=== PATIENT | female | born 1940 | race Caucasian/White ===

== ENCOUNTER 2016-12-05 11:36 | Day surgery (SDC) | payer OTHER ==
[~2016-12-05 11:36] MED LIST: ACETAMINOPHEN 325 MG TAB PO PRN; ASPIRIN EC 325 MG TAB PO ONE; DIAZEPAM 5 MG TAB PO ONE; FAMOTIDINE 20 MG TAB PO ONE; NITROGLYCERIN 0.4 MG BTL SL PRN; NS 1,000 ML IV SCH; TEMAZEPAM 15 MG CAP PO PRN; diphenhydrAMINE 25 MG CAP PO ONE
[2016-12-05] MEDS ORDERED: FAMOTIDINE 20 MG TAB PO ONE (11:39)
[2016-12-05] MEDS ORDERED: diphenhydrAMINE 25 MG CAP PO ONE (11:39)
[2016-12-05] MEDS ORDERED: DIAZEPAM 5 MG TAB PO ONE (11:39)
[2016-12-05] MEDS ORDERED: NS 1,000 ML IV ONE (11:39)
--- NOTE | 2016-12-05 12:14 | CPEKG ---
Heart Rate: 57 RR Interval: 1053 P-R Interval: 132 QRSD Interval: 100 QT Interval: 484 QTC Interval: 472 P [place]: 61 QRS [place]: 44 T Wave [place]: 57 EKG Severity - ABNORMAL ECG - EKG Impression: SINUS RHYTHM EKG Impression: RIGHT ATRIAL ABNORMALITY EKG Impression: PROBABLE INFERIOR INFARCT, AGE INDETERMINATE EKG Impression: LATERAL LEADS ARE ALSO INVOLVED Electronically Signed By: Lv Gardner 05-Dec-2016 13:23:18
[2016-12-05] MEDS ORDERED: LIDOCAINE 1% 300 MG/30 ML SDV ONE (12:28)
[2016-12-05] MEDS ORDERED: MIDAZOLAM 2 MG/2 ML VIAL ONE ×2 (12:29)
[2016-12-05] MEDS ORDERED: fentaNYL 100 MCG/2 ML INJ ONE (12:29)
[2016-12-05] MEDS ORDERED: IOPAMIDOL (ISOVUE-370) 150 ML BTL IV ONE (12:30)
[2016-12-05] MEDS: ASPIRIN EC 325 MG TAB PO ONE ×2 (12:32→12:37)
--- NOTE | 2016-12-05 12:33 | PDPROPOC ---
Sedation Plan of Care Sedation Plan of Care: vital signs stable, mental status noted, patient educated of risks, benefits, alternatives, patient can tolerate sedation ASA Classification: ASA 1 Planned drugs: fentanyl, midazolam Mallampati Score: Class 1 Mallampati Reference Image: Patient passed 3-3-2 rule?: Yes
--- NOTE | 2016-12-05 12:34 | PDGENHP ---
History & Physical Chief Complaint: SOB and abnormal MPI. History of Present Illness: SOB, smoker, abnormal MPI. Pertinent Past, Social, Family History: See prior dictation. Relevant Physical Exam: Lungs are clear, RRR. Cardiorespiratory Assessment: Low risk for cath.
[2016-12-05 12:36] LABS: % IMMATURE GRANULYOCYTES 0.4 % (0.0-1.1); ABSOLUTE IMMATURE GRANULOCYTES 0.04 10^3/uL (0.00-0.10); ADD DIFF? NO; ADD MORPH? NO; ADD SCAN? NO; ATYPICAL LYMPHOCYTE FLAG 10 (0-99); FRAGMENT RBC FLAG 0 (0-99); HEMATOCRIT 45.5 % (38.0-47.0); HEMOGLOBIN 15.1 g/dL (12.6-16.3); LEFT SHIFT FLG 0 (0-99); LIPEMIA HEMOLYSIS FLAG 80 (0-99); MEAN CELL HEMOGLOBIN 29.5 pg (27.9-34.1); MEAN CELL HEMOGLOBIN CONCENTR. 33.2 g/dL (32.4-36.7); MEAN PLATELET VOLUME 9.3 fL (8.7-11.7); PLATELET CLUMPS FLAG 0 (0-99); PLATELET COUNT 239 10^3/uL (150-400); RED BLOOD CELL COUNT 5.11 10^6/uL (4.18-5.33); RED CELL DISTRIBUTION WIDTH 14.1 % (11.5-15.2)
[2016-12-05] MEDS ORDERED: HEPARIN 10,000 UNIT/10 ML MDV ONE (12:53)
[2016-12-05] MEDS ORDERED: VERAPAMIL 5 MG/2 ML VIAL ONE (12:53)
[2016-12-05 12:56] LABS: INR 1.04 (0.83-1.16); PROTIME(PATIENT) 13.5 SEC (12.0-15.0)
[2016-12-05 12:57] LABS: ANION GAP 9 mEq/L (8-16); CALCIUM 9.4 mg/dL (8.5-10.4); CARBON DIOXIDE 24 mEq/l (22-31); CHLORIDE 105 mEq/L (97-110); CHOLESTEROL 125 mg/dL (140-220); CHOLESTEROL/HDL RATIO 3.13 RATIO (1.00-4.44); CREATININE 0.8 mg/dL (0.6-1.0); GLOMERULAR FILTRATION RATE > 60; GLUCOSE 85 mg/dL (70-100); HIGH DENSITY LIPOPROTEIN 40 mg/dL (40-85); LOW DENSITY LIPOPROTEIN 48 mg/dL (80-100); MAGNESIUM 2.2 mg/dL (1.6-2.3); NON-HIGH DENSITY LIPOPROTEIN 85 mg/dL (90-129); POTASSIUM 4.5 mEq/L (3.5-5.2); SODIUM 138 mEq/L (134-144); TRIGLYCERIDE 185 mg/dL (35-135); VERY LOW DENSITY LIPOPROTEINS 37 mg/dL (8-25)
[2016-12-05] MEDS ORDERED: ONDANSETRON 4 MG/2 ML VIAL IVP PRN (13:54)
[2016-12-05] MEDS ORDERED: ATROPINE SULFATE 1 MG/10 ML SYR IVP PRN (13:54)
--- NOTE | 2016-12-05 14:10 | PDDXCAT ---
Diagnostic Cath Note - . Date: 12/05/16 Medical Laboratory Manager: Hreiberto Indication: Class I/II angina, intolerance to med therapy or failure to respond High-risk criteria on non-invasive testing: large, fixed perfusion defect w LV dilatation or increased lung uptake - Procedure Access: right wrist Procedure: left heart catheterization, coronary angiography, left ventriculogram - Materials Left Heart Cath materials: JL3.5, JR4.0, pigtail - Findings-Left Heart Catheterization LM: The left main is large caliber vessel with appropriate bifurcation into the left anterior descending and circumflex distributions. There is a distal 20% left main stenosis with calcification appreciated. No obstructive lesions are noted. LAD: The left anterior descending is a moderate caliber transapical vessel. A single 1st diagonal branches identified. There is a mid 40% stenosis noted at the 1st septal flame cutter her and a mid 30% stenosis noted distally. Otherwise , luminal irregularities are noted with no obstructive lesions. LCX: The circumflex is small in caliber. There is a single obtuse marginal branch noted. There is a 50% lesion noted in the proximal portion of this obtuse marginal branch. RCA: The right coronary artery is large in caliber and mid occluded. There is contralateral collateralization to the distal RCA to include the posterior descending artery and a large posterolateral system. EDP: 22 mmHg. LVEF: The ejection fraction is 50%. Wall motion: There is akinesis of the diaphragmatic segment. There is a filling defect in the inferior apex suggesting a left ventricular thrombus. Complications: None. 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 This distribution is known to be fixed with no evidence of reversible ischemia. Moderate ischemic cardiomyopathy with an ejection fraction of 45-50% with dense diaphragmatic akinesis and possible left ventricular apical thrombus.
[2016-12-05] MEDS ORDERED: PERFLUTREN LIPID MICROSPHERES 1.1 MG/ML VIAL IV ONE (15:00)
--- NOTE | 2016-12-05 15:47 | ECHO ---
[id number] + + [address] : : [place] [address] : : [phone] + + Adult Echocardiographic Report + ------+ :Name: EUN EVANS JStudy Date: 12/05/2016 03:08 PM : : Hospital Admission Number: [id number] Locatio n: C: :: 1940 Gender: Female : :Age: 76 yrs Race: WH : :Reason For Study: Eval for LV apical thrombus : + ------+ Left Ventricle No LV apical thrombus. The left ventricular ejection fraction is normal. The left ventricular wall motion is normal. Conclusion Limited 2-D echo with definity lipid microspheres. The left ventricular ejection fraction is normal. No LV apical thrombus. The left ventricular wall motion is normal. Final Reading Physician: Darius Garcia signed on 12/05/2016 03:45 PM Ordering Physician: Fabricio Louis Performed By: Elizabeth Dunbar RDCS
== END 2016-12-05 17:20 | disposition home or self-care (01) ==
LOC: FCATH 11:36
PROVIDERS: ATTEND Internal Medicine Cardiovascular Disease
PROC: B2111ZZ Fluoroscopy of Multiple Coronary Arteries using Low Osmolar Contrast (ICD-10-PCS; principal; 2016-12-05)
PROC: B2151ZZ Fluoroscopy of Left Heart using Low Osmolar Contrast (ICD-10-PCS; principal; 2016-12-05)
PROC: 4A023N7 Measurement of Cardiac Sampling and Pressure, Left Heart, Percutaneous Approach (ICD-10-PCS; principal; 2016-12-05)
DX: I25.119 Atherosclerotic heart disease of native coronary artery with unspecified angina pectoris (principal); I25.2 Old myocardial infarction; R94.39 Abnormal result of other cardiovascular function study; F17.210 Nicotine dependence, cigarettes, uncomplicated
CPT/HCPCS: 93005; 93458; C1769; C8924; J1644; J2250; J3010; Q9957; Q9967